=== PATIENT | male | born 1955 | race Caucasian/White ===

== ENCOUNTER 2024-02-26 08:20 | Outpatient (CLI) | payer OTHER | END 2024-02-26 08:21 | disposition home or self-care (01) | LOC: SCSMRI 08:20 | PROVIDERS: ATTEND Family Medicine | DX: R51.9 Headache, unspecified (principal); H53.9 Unspecified visual disturbance; R25.1 Tremor, unspecified; S06.5XAA Traumatic subdural hemorrhage with loss of consciousness status unknown, initial encounter; G93.9 Disorder of brain, unspecified | CPT/HCPCS: 36415; 70553; 76376; 82565 ==

== ENCOUNTER 2025-01-04 13:24 | Outpatient (CLI) | payer OTHER | END 2025-01-04 13:25 | disposition home or self-care (01) | LOC: CT 13:24 | DX: S09.90XA Unspecified injury of head, initial encounter (principal); I67.82 Cerebral ischemia; R90.89 Other abnormal findings on diagnostic imaging of central nervous system | CPT/HCPCS: 70450 ==